=== PATIENT | female | born 1995 | race Caucasian/White ===

== ENCOUNTER 2018-03-15 13:57 | Emergency (ER) ==
[2018-03-15] MEDS ORDERED: DUONEB NEB STA (14:02)
[2018-03-15 14:20] VITALS: BP 129/92; TEMP 97.6; BMI 28.5
--- NOTE | 2018-03-15 15:04 | ED.PDOC ---
General ED Provider: Dr. ANGELINA BACON Chief Complaint: Respiratory Complaint Stated Complaint: short of air Time Seen by Physician: 14:00 (seen with kelsey ) Mode of Arrival: Walk-In Information Source: Patient Exam Limitations: No limitations Nursing and Triage Documentation Reviewed and Agree: Yes Reviewed sepsis parameters & appropriate labs ordered?: Yes System Inflammatory Response Syndrome: Not Applicable Sepsis Protocol: For patient's 13 years and over: Temp is 96.8 and below OR 101 and greater Pulse >90 BPM Resp >20/minute Acutely Altered Mental Status Are patient's symptoms suggestive of a new infection, such as: -Pneumonia -Skin, Soft Tissue -Endocarditis -UTI -Bone, Joint Infection -Implantable Device -Acute Abdominal Infection -Wound Infection -Meningitis -Blood Stream Catheter Infection -Unknown System Inflammatory Response Syndrome: Not Applicable Respiratory Complaint Exam - Shortness of Air Complaint/Exam Onset/Duration: today Symptoms Are: Still present Timing: Intermittent Initial Severity: Mild Current Severity: Mild Character: Reports: Dyspnea on exertion Aggravating: Reports: None Alleviating: Reports: Bronchodilators, Upright position, Spontaneous resolution Associated Signs and Symptoms: Reports: Cough, Nasal congestion. Denies: Wheezing, Chest pain with cough, Chest pain, Fever, Chills, Diaphoresis, Dizziness, Calf pain, Calf swelling, Edema, Rapid breathing, Labored breathing, Decreased intake Related History: Reports: Similar episode History of Healthcare-Acquired Pneumonia: No Pulmonary Embolism Risk Factors: Reports: None Cardiac Risk Factors: Reports: None Pseudomonas Risk Factors: Reports: None Tuberculosis Risk Factors: Reports: None Home Oxygen Use: No Recent Stress Test: No Recent Echo/LV Function: No Respiratory Distress: None Stridor Present: No Tracheal Deviation: No Subcutaneous Emphysema: No Accessory Muscle Use: No Retractions: Not Present Diminished Breath Sounds: No Prolonged Expiratory Phase: No Unable to Speak Full Sentences: No Fatigue: No Leg Swelling: No Az's Sign Present: No Grunting Respirations: No Kussmaul Respirations: No Differential Diagnoses: Pneumonia, Bronchitis Quality Indicators for AMI: EKG in 10min. Quality Indicators for Cardiac Chest Pain: EKG in 10min. Quality Indicator For Non-Traumatic Chest Pain/Syncope: EKG Performed Review of Systems - Review Of Systems Constitutional: Reports: No symptoms Eyes: Reports: No symptoms Ears, Nose, Mouth, Throat: Reports: No symptoms Respiratory: Reports: Cough Cardiac: Reports: No symptoms GI: Reports: No symptoms : Reports: No symptoms Musculoskeletal: Reports: No symptoms Skin: Reports: No symptoms Neurological: Reports: No symptoms Endocrine: Reports: No symptoms Hematologic/Lymphatic: Reports: No symptoms All Other Systems: Reviewed and Negative Past Medical History - Past Medical History Previously Healthy: Yes Endocrine: Reports: None Cardiovascular: Reports: None Respiratory: Reports: None Hematological: Reports: None Gastrointestinal: Reports: None Genitourinary: Reports: None Neuro/Psych: Reports: None Musculoskeletal: Reports: None Cancer: Reports: None Last Menstrual Period: months ago - Surgical History General Surgical History: Reports: None - Family History Family History: Reports: None - Social History Smoking Status: Never smoker Hx Substance Use: No Alcohol Screening: None Physical Exam - Physical Exam Appearance: Well-appearing, No pain distress, Well-nourished Eyes: EUGENIO, EOMI, Conjunctiva clear ENT: Ears normal, Nose normal, Oropharynx normal Respiratory: Airway patent, Breath sounds clear, Breath sounds equal, Respirations nonlabored Cardiovascular: RRR, Pulses normal, No rub, No murmur GI/: Soft, Nontender, No masses, Bowel sounds normal, No Organomegaly Musculoskeletal: Normal strength, ROM intact, No edema, No calf tenderness Skin: Warm, Dry, Normal color Neurological: Sensation intact, Motor intact, Reflexes intact, Cranial nerves intact, Alert, Oriented Psychiatric: Affect appropriate, Mood appropriate Interpretation - Radiology Interpretation Radiology Interpretation By: Radiologist Radiology Results: No acute changes Critical Care Note - Critical Care Note Total Time (mins): 0 Course - Course Hematology/Chemistry: 03/15/18 14:15 Orders, Labs, Meds: Lab Review 03/15/18 03/15/18 03/15/18 14:02 14:15 14:15 Puncture Site Rrad O2 Saturation 98.0 ABG pH 7.397 ABG pCO2 36.0 ABG pO2 98.0 ABG HCO3 22.2 ABG Total CO2 23 ABG Base Excess -3 L Jeremy Test + FiO2 % 21.0 Sodium 137 Potassium 3.8 Chloride 106 Carbon Dioxide 19 L Anion Gap 15.8 BUN 11 Creatinine 0.81 Estimated GFR (MDRD) 88.00 BUN/Creatinine Ratio 13.58 Glucose 93 Calcium 9.5 Total Bilirubin 0.6 AST 75 H ALT 51 Alkaline Phosphatase 93 Total Protein 7.8 Albumin 4.0 Globulin 3.8 Albumin/Globulin Ratio 1.05 Serum , Qual Negative Orders Category Date Time Status ABG DRAW REQUEST Stat CARDIO 03/15/18 14:02 Completed EKG-(ED ONLY) Stat CARDIO 03/15/18 14:00 Completed NEBULIZER TREATMENT Stat CARDIO 03/15/18 14:02 Ordered NPO REMINDER: IMAGING ONCE CARE 03/15/18 14:01 Completed ED IV/MEDIPORT/POWERPORT .ONCE EMERGENCY 03/15/18 14:00 Active ABG Stat LAB 03/15/18 14:02 Completed CBC W/ AUTO DIFF Stat LAB 03/15/18 14:15 Received COMPREHENSIVE METABOLIC PANEL Stat LAB 03/15/18 14:15 Completed SERUM Stat LAB 03/15/18 14:15 Completed 0.9 % Sodium Chloride [Saline Flush] MEDS 03/15/18 14:00 Active 1 syr IVF PRN PRN Ipratropium/Albuterol Neb [Duoneb] MEDS 03/15/18 14:02 Discontinued 1 vial NEB ONCE STA CT CHEST PE PROTOCOL Stat RADS 03/15/18 14:01 Ordered Medications Generic Name Dose Route Start Last Admin Trade Name Freq PRN Reason Stop Dose Admin Sodium Chloride 1 syr 03/15/18 14:00 03/15/18 14:20 Saline Flush IVF 1 syr PRN PRN Administration To flush IV Discontinued Medications Generic Name Dose Route Start Last Admin Trade Name Freq PRN Reason Stop Dose Admin Albuterol/Ipratropium 1 vial 03/15/18 14:02 03/15/18 14:50 Duoneb NEB 03/15/18 14:03 1 vial ONCE STA Administration Vital Signs: Temp Pulse Resp BP Pulse Ox 03/15/18 13:57 97.6 F 89 16 129/92 H 97 Departure - Departure Time of Disposition: 15:05 Disposition: HOME SELF-CARE Discharge Problem: Bronchitis Instructions: Acute Bronchitis (ED) Condition: Good Pt referred to PMD for follow-up: Yes IPMP verified?: No Additional Instructions: Please call your Family Physician as soon as possible to schedule a follow-up appointment. Allergies/Adverse Reactions: Allergies venom-wasp [wasp venom] Adverse Reaction (Verified 03/15/18 14:05) Home Medications: Ambulatory Orders Control Implant 03/15/18 Disposition Discussed With: Patient
[2018-03-15] MEDS ORDERED: DECADRON 4 MG/ML SDV IV STA (15:20)
--- NOTE | 2018-03-15 15:40 | CT ---
Exam: CTA chest, PE protocol with 3-D MIP reformatted imaging. Comparison: None available. Reason for exam: Short of breath. FINDINGS: No pneumothorax, pleural effusion, or focal consolidation. No main, proximal, or segmental pulmonary arterial filling defects are seen. The heart is not enlarg ed. The aorta is normal in course and caliber. There is no significant atherosclerotic disease. No suspicious appearing osteoblastic or osteolytic lesions. Impression: No main, proximal, or segmental pulmonary arterial filling defects are seen. No acute imaging findings are seen within the thorax. Report faxed at [phone] hours on 03/15/2018.
== END 2018-03-15 15:55 | disposition home or self-care (01) ==
LOC: ED 13:57
DX: J20.9 Acute bronchitis, unspecified (principal)
CPT/HCPCS: 36415; 80053; 82803; 84703; 85025; 93005; 93010; 94640; 96375; 99283

== ENCOUNTER 2018-07-28 11:57 | Outpatient (CLI) | END 2018-07-28 11:58 | disposition home or self-care (01) | LOC: FCC-LAB 11:57 | PROVIDERS: ATTEND Family Medicine | DX: E16.2 Hypoglycemia, unspecified (principal) | CPT/HCPCS: 36415; 83037 ==

== ENCOUNTER 2018-09-14 07:07 | Emergency (ER) ==
[2018-09-14 07:18] VITALS: BP 128/91; TEMP 98.7; BMI 29.2
--- NOTE | 2018-09-14 07:40 | ED.PDOC ---
General ED Provider: Dr. ARBEN BLANCO Chief Complaint: Hip Pain/Injury Stated Complaint: Hip and back pain. States slipped and fell on buttocks this am the squatted down and hip/pelvis locked up. Experiencing severe pain in Rt Groin into pubic region. Time Seen by Physician: 07:34 Mode of Arrival: Wheelchair Information Source: Patient Exam Limitations: No limitations Primary Care Provider: ERIBERTO DOWNING Nursing and Triage Documentation Reviewed and Agree: Yes Does patient meet sepsis criteria?: No System Inflammatory Response Syndrome: Not Applicable Sepsis Protocol: For patient's 13 years and over: Temp is 96.8 and below OR 101 and greater Pulse >90 BPM Resp >20/minute Acutely Altered Mental Status Are patient's symptoms suggestive of a new infection, such as: -Pneumonia -Skin, Soft Tissue -Endocarditis -UTI -Bone, Joint Infection -Implantable Device -Acute Abdominal Infection -Wound Infection -Meningitis -Blood Stream Catheter Infection -Unknown Musculoskeletal Complaint Exam - Hip/Pelvis Complaint/Exam Location of Pain: Reports: Right Mechanism of Injury: Reports: Trauma Onset/Duration: 2 hrs Symptoms Are: Still present Initial Severity: Severe Current Severity: Moderate Location: Reports: Diffuse Character: Reports: Dull, Aching, Spasmodic, Stiffness, Burning Aggravating: Reports: Movement, Weight bearing Alleviating: Reports: Rest, Position Associated Signs and Symptoms: Denies: Swelling, Redness, Bruising, Fever, Weakness, Dizziness, Syncope, Abdominal pain, Knee pain Related History: Denies: Similar episode Septic Arthritis Risk Factors: Reports: None Related Surgical History: Reports: None Rotation: External Pelvis Palpation: Stable Hip/Pelvis Findings: Absent: Extremity shortened Tenderness: Present: Right, ASIS, Greater Trochanter, Pubis, Ischium Range of Motion Limited In: Present: Flexion, Abduction, Internal rotation, External rotation NV Bundle Intact Distal to Injury: Yes Differential Diagnoses: Contusion, Fracture, Strain Review of Systems - Review Of Systems Constitutional: Reports: No symptoms Eyes: Reports: No symptoms Ears, Nose, Mouth, Throat: Reports: No symptoms Respiratory: Reports: No symptoms Cardiac: Reports: No symptoms GI: Reports: No symptoms : Reports: No symptoms Musculoskeletal: Reports: No symptoms, Back pain, Joint pain, Muscle stiffness Skin: Reports: No symptoms Neurological: Reports: No symptoms Endocrine: Reports: No symptoms Hematologic/Lymphatic: Reports: No symptoms All Other Systems: Reviewed and Negative Past Medical History - Past Medical History Previously Healthy: Yes Endocrine: Reports: None Cardiovascular: Reports: None Respiratory: Reports: None Hematological: Reports: None Gastrointestinal: Reports: None Genitourinary: Reports: None Neuro/Psych: Reports: None Musculoskeletal: Reports: None Cancer: Reports: None Last Menstrual Period: late December - Surgical History General Surgical History: Reports: None - Family History Family History: Reports: None - Social History Smoking Status: Never smoker Hx Substance Use: No Alcohol Screening: Occasionally - Immunizations Tetanus Shot up to Date: Yes Physical Exam - Physical Exam Appearance: Well-appearing, No pain distress, Well-nourished Pain Distress: Mild Eyes: EUGENIO, EOMI, Conjunctiva clear ENT: Ears normal, Nose normal, Oropharynx normal Respiratory: Airway patent, Breath sounds clear, Breath sounds equal, Respirations nonlabored Cardiovascular: RRR, Pulses normal, No rub, No murmur GI/: Soft, Nontender, No masses, Bowel sounds normal, No Organomegaly Musculoskeletal: Normal strength, No edema, No calf tenderness, Limited ROM, Limited strength Skin: Warm, Dry, Normal color Neurological: Sensation intact, Motor intact, Reflexes intact, Cranial nerves intact, Alert, Oriented Psychiatric: Affect appropriate, Mood appropriate Interpretation - Radiology Interpretation Radiology Interpretation By: Radiologist Radiology Results: No acute changes Exam Interpreted: CT Scan Xray Comments: Unremarkable CT Pelvis and LS spine/low attenuated lesion RPelvis -fara cyst Re-Evaluation - Re-Evaluation Time of Re-Evaluation: 09:05 Status: Improved Vital Signs Stable: Yes Appearance: NAD Lungs: Clear Skin: Warm and Dry Neuro: Alert and Oriented X3 CV: RRR Additional Comments: Improved RT hip mobiltiy/ambulates slowely Critical Care Note - Critical Care Note Total Time (mins): 0 Course - Course Orders, Labs, Meds: Orders Category Date Time Status Ketorolac Tromethamine [Toradol] MEDS 09/14/18 07:43 Discontinued 30 mg IM ONCE STA CT LUMBAR SPINE W/O CONTRAST Stat RADS 09/14/18 07:[address] PELVIS W/O CONTRAST Stat RADS 09/14/18 07:45 Completed Medications Discontinued Medications Generic Name Dose Route Start Last Admin Trade Name Freq PRN Reason Stop Dose Admin Ketorolac Tromethamine 30 mg 09/14/18 07:43 09/14/18 07:58 Toradol IM 09/14/18 07:44 30 mg ONCE STA Administration Vital Signs: Temp Pulse Resp BP Pulse Ox 09/14/18 07:09 98.7 F 102 H 20 128/91 H 97 Departure - Departure Time of Disposition: 08:50 Disposition: HOME SELF-CARE Discharge Problem: Strain of muscle of right groin region, Hip pain, Arthralgia of hip, right Instructions: Groin Strain (ED) Condition: Good Pt referred to PMD for follow-up: Yes (1wk) IPMP verified?: No Additional Instructions: Take meds as prescribed Off work today Ice to area of discomfort Follow up PCP in next week if discomfort persist Avoid strenuous activity Ibuprofen 600 mg 4 times daily for pain Flexeril 5 mg bid for muscle relaxation Allergies/Adverse Reactions: Allergies venom-wasp [wasp venom] Adverse Reaction (Verified 03/15/18 14:05) Home Medications: Ambulatory Orders Control Implant 03/15/18 Cyclobenzaprine HCl [Flexeril] 5 mg PO BID #10 tablet 09/14/18 D-Methorphan/PE/Acetaminophen [Cold Multi-Symptom Gelcap] 1 each PO 2-4XD PRN Disposition Discussed With: Patient
[2018-09-14] MEDS ORDERED: TORADOL IM STA (07:43)
--- NOTE | 2018-09-14 08:36 | CT ---
EXAM: CT pelvis without contrast HISTORY: Pain in the right hip and pelvis. COMPARISON: CT lumbar spine 09/14/[address] abdomen pelvis 03/29/2015 TECHNIQUE: Serial axial images of the pelvis were obtained without contrast. These were viewed in m ultiple planes. FINDINGS: There is no lytic or blastic lesion of the osseous structures of the pelvis. The sacroilia c joints and pubic symphysis are normal. The hips are normal in appearance and position. There is n o abnormal periosteal reaction. Soft tissues in the pelvis demonstrate normal colon and small bowel. The uterus is unremarkable. There is a round low attenuation lesion in the inferior right pelvis m easuring 3 cm in diameter that may represent an adnexal cyst. Bilateral soft tissues of the groin are normal. IMPRESSION: 1. No acute osseous abnormality to account for patient's symptoms. 2. Round low attenuation lesion in the right inferior pelvis may represent an adnexal cyst. If furt her evaluation is indicated, ultrasound may be obtained.
--- NOTE | 2018-09-14 08:37 | CT ---
EXAM: CT of the lumbar spine without contrast History: Lower back trauma. Comparison: Pelvic CT 09/14/2018 Technique: Multiplanar CT images through the lumbar spine were obtained without the administration o f IV contrast Findings: No acute fracture or subluxation of the lumbar spine. Disc space heights are preserved. Bony spinal canal is not compromised. No bony neural foraminal narrowing. Surrounding soft tissues demonstrate no acute findings. Impression: Unremarkable exam
== END 2018-09-14 09:35 | disposition home or self-care (01) ==
LOC: ED 07:07
DX: M25.551 Pain in right hip (principal); S39.011A Strain of muscle, fascia and tendon of abdomen, initial encounter; M54.9 Dorsalgia, unspecified; W19.XXXA Unspecified fall, initial encounter
CPT/HCPCS: 96372; 99283

== ENCOUNTER 2018-09-23 22:06 | Emergency (ER) ==
[2018-09-23 22:22] VITALS: BP 125/86; TEMP 99.3; BMI 31.0
[2018-09-23] MEDS ORDERED: TORADOL IM STA (22:28)
--- NOTE | 2018-09-23 22:31 | ED.PDOC ---
General ED Provider: Dr. SEAN MORTENSEN Chief Complaint: Ankle Pain/Injury Stated Complaint: Patient states she twisted her right ankle and foot when she stepped on a slick floor. This caused severe pain to the pain of Nausea. Happened last night. Pain is still persistent today. Time Seen by Physician: 22:31 Mode of Arrival: Walk-In Information Source: Patient Exam Limitations: No limitations Primary Care Provider: ERIBERTO DOWNING Nursing and Triage Documentation Reviewed and Agree: Yes Does patient meet sepsis criteria?: No System Inflammatory Response Syndrome: Not Applicable Sepsis Protocol: For patient's 13 years and over: Temp is 96.8 and below OR 101 and greater Pulse >90 BPM Resp >20/minute Acutely Altered Mental Status Are patient's symptoms suggestive of a new infection, such as: -Pneumonia -Skin, Soft Tissue -Endocarditis -UTI -Bone, Joint Infection -Implantable Device -Acute Abdominal Infection -Wound Infection -Meningitis -Blood Stream Catheter Infection -Unknown Musculoskeletal Complaint Exam - Ankle/Foot Complaint/Exam Location of Injury: Reports: Right Mechanism of Injury: Reports: Trauma (twisting injury ) Onset/Duration: constant Symptoms Are: Reports: Still present Onset of Pain: Reports: Immediate, Post accident Initial Severity: Severe Current Severity: Moderate Location: Reports: Diffuse Character: Reports: Aching, Throbbing Alleviating: Reports: None Aggravating: Reports: Movement, Weight bearing, Prolonged standing Able to Bear Weight: Yes Gout Risk Factors: Reports: None Related Surgical History: Reports: None Lower Extremity Findings: Present: Swelling Achilles Tendon Abnormality: No Tenderness: Present: Lateral malleolus, Midfoot Limited Range of Motion: Present: Inversion, Eversion, Dorsiflexion, Plantarflexion Differential Diagnosis: Closed Fracture Review of Systems - Review Of Systems Constitutional: Reports: No symptoms Eyes: Reports: No symptoms Ears, Nose, Mouth, Throat: Reports: No symptoms Respiratory: Reports: No symptoms Cardiac: Reports: No symptoms GI: Reports: No symptoms : Reports: No symptoms Musculoskeletal: Reports: Joint pain, Joint swelling (right ankle ) Skin: Reports: No symptoms Neurological: Reports: No symptoms Endocrine: Reports: No symptoms Hematologic/Lymphatic: Reports: No symptoms All Other Systems: Reviewed and Negative Past Medical History - Past Medical History Previously Healthy: Yes Endocrine: Reports: None Cardiovascular: Reports: None Respiratory: Reports: None Hematological: Reports: None Gastrointestinal: Reports: None Genitourinary: Reports: None Neuro/Psych: Reports: None Musculoskeletal: Reports: None Cancer: Reports: None Last Menstrual Period: now - Surgical History General Surgical History: Reports: None - Family History Family History: Reports: None - Social History Smoking Status: Never smoker Hx Substance Use: No Alcohol Screening: Occasionally - Immunizations Tetanus Shot up to Date: Yes (2013) Physical Exam - Physical Exam Appearance: Well-appearing Ill-appearing: Mild Pain Distress: Moderate Neck: Supple Respiratory: Airway patent Cardiovascular: RRR, Pulses normal, No rub, No murmur GI/: Soft, Nontender, No masses, Bowel sounds normal, No Organomegaly Musculoskeletal: Limited ROM, Edema Skin: Warm, Dry, Normal color Neurological: Sensation intact, Motor intact, Reflexes intact, Cranial nerves intact, Alert, Oriented Psychiatric: Anxious Interpretation - Radiology Interpretation Radiology Interpretation By: Radiologist Radiology Results: Negative Exam Interpreted: Other (right ankle and foot ) Critical Care Note - Critical Care Note Total Time (mins): 0 Course - Course Orders, Labs, Meds: Orders Category Date Time Status MAO [ED MAO WRAP] .ONCE EMERGENCY 09/23/18 23:07 Active ED APPLY ICE AFFECTED AREA .ONCE EMERGENCY 09/23/18 23:07 Active Ketorolac Tromethamine [Toradol] MEDS 09/23/18 22:28 Discontinued 60 mg IM ONCE STA ANKLE, RIGHT MIN 3 VIEWS Stat RADS 09/23/18 22:28 Completed FOOT, RIGHT 3 VIEWS Stat RADS 09/23/18 22:29 Completed Medications Discontinued Medications Generic Name Dose Route Start Last Admin Trade Name Freq PRN Reason Stop Dose Admin Ketorolac Tromethamine 60 mg 09/23/18 22:28 09/23/18 22:40 Toradol IM 09/23/18 22:29 60 mg ONCE STA Administration Vital Signs: Temp Pulse Resp BP Pulse Ox 09/23/18 22:14 99.3 F 89 18 125/86 98 Departure - Departure Time of Disposition: 23:05 Disposition: HOME SELF-CARE Discharge Problem: Ankle sprain Qualifiers: Encounter type: initial encounter Involved ligament of ankle: unspecified ligament Laterality: right Qualified Code(s): S93.401A - Sprain of unspecified ligament of right ankle, initial encounter Instructions: Ankle Sprain (ED) Condition: Good Pt referred to PMD for follow-up: Yes IPMP verified?: No Additional Instructions: Take pain medications as prescribed Keep foot elevated Prescriptions: Ibuprofen [Motrin] 600 mg PO Q6H PRN #30 tablet PRN Reason: inflamation Allergies/Adverse Reactions: Allergies venom-wasp [wasp venom] Adverse Reaction (Verified 09/23/18 22:22) Home Medications: Ambulatory Orders Control Implant 03/15/18 Ibuprofen [Motrin] 600 mg PO Q6H PRN #30 tablet 09/23/18 Disposition Discussed With: Patient
--- NOTE | 2018-09-23 22:54 | DI ---
Exam: Right ankle 3 views History: Injury and pain Findings/Impression: No significant melisa or articular abnormality. Negative exam.
--- NOTE | 2018-09-23 22:57 | DI ---
Exam: Right foot three-view HISTORY: Injury and pain Findings / impression: No bony or articular abnormality. Negative exam.
== END 2018-09-23 23:10 | disposition home or self-care (01) ==
LOC: ED 22:06
DX: S93.401A Sprain of unspecified ligament of right ankle, initial encounter (principal); W01.0XXA Fall on same level from slipping, tripping and stumbling without subsequent striking against object, initial encounter
CPT/HCPCS: 96372; 99282

== ENCOUNTER 2019-05-02 12:40 | Outpatient (CLI) ==
--- NOTE | 2019-05-02 13:53 | US ---
EXAM: Transvaginal pelvic ultrasound. History: Placement of intrauterine device Comparison: Pelvic CT 09/14/2018 Technique: Multiple sonographic images through the pelvis were obtained. Color duplex Doppler was u sed to interrogate vascular flow. Findings: The uterus measures 7.7 cm x 3.1 cm x 3.7 cm. Intrauterine device is seen in expected location. End ometrium measures 0.6 cm in thickness. No fluid in the cul-de-sac. Both ovaries are normal in size. Blood flow was documented within each ovary. The incidental domina nt follicles are seen within both ovaries. No suspicious adnexal masses. Impression: Intrauterine device is seen in expected location. No acute sonographic findings.
== END 2019-05-02 12:41 | disposition home or self-care (01) ==
LOC: RAD 12:40
PROVIDERS: ATTEND Advanced Practice Midwife
DX: Z30.014 Encounter for initial prescription of intrauterine contraceptive device (principal)